=== PATIENT | female | born 1960 | race Caucasian/White ===

== ENCOUNTER 2016-08-15 11:46 | Emergency (ER) | payer SELFPAY ==
[~2016-08-15] VITALS: Ht 172.7 cm; Wt 59.3 kg
[2016-08-15 11:48] VITALS: BP 136/74; PULSE 85; RESP 16; TEMP 98; O2SAT 96
[2016-08-15] MEDS ORDERED: GABA300C5 PO (12:13)
--- NOTE | 2016-08-15 12:16 | PD ---
HPI Chief Complaint: Headache Time Seen by Provider: 12:07 Travel History International Travel<30 days: No Contact w/Intl Traveler<30days: No Traveled to known affect area: No History of Present Illness HPI This patient complains of headache. She said headache daily for a month. Located in the left forehead area where she had a shingles rash. The rash has resolved but has left her with some postherpetic neuralgia. No head injury or fever. PFSH Past Medical History Hx Anticoagulant Therapy: Yes (81 MG ASA) Cancer: No Cardiac Catheterization: Yes Cardiovascular Problems: Yes (HEART ATTACK 2013) Chemotherapy: No Cerebrovascular Accident: No Coronary Artery Disease: Yes Diabetes: No Diminished Hearing: No Endocrine: No Genitourinary: No Immune Disorder: No Musculoskeletal: No Neurologic: No Psychiatric: No Reproductive: No Respiratory: No Immunizations Current: Yes Myocardial Infarction: Yes Influenza Vaccination: No ?: Not Menopausal: Yes Past Surgical History Gynecologic Surgery: Yes (ovarian cyst removed) Hysterectomy: No Tonsillectomy: Yes Other Surgery: Yes Social History Alcohol Use: Yes (3 times/weekly) Tobacco Use: Yes (1/2 ppd ) Substance Use: Yes (occasionally smokes marijuana) Allergies-Medications (Allergen,Severity, Reaction): Coded Allergies: No Known Allergies (Verified , 08/15/16) Reported Meds & Prescriptions Reported Meds & Active Scripts Active Gabapentin 300 Mg Cap 300 Mg PO TID Review of Systems General / Constitutional: No: Fever HENT: Positive: Headaches Cardiovascular: No: Chest Pain or Discomfort Physical Exam Narrative NEUROLOGICAL: Awake and alert. Pupils are equal round and reactive. Motor and sensory grossly within normal limits. Five out of 5 muscle strength in all muscle groups. Normal speech. NECK: Symmetrical appearance, midline trachea. No mass or crepitus. Thyroid without enlargement, tenderness, or mass. SKIN: Inspection shows no rash or ulcers. Palpation shows no induration or nodules. Scalp: Her shingles rash has resolved Data Data Last Documented VS Vital Signs Date Time Temp Pulse Resp B/P Pulse Ox O2 Delivery O2 Flow Rate FiO2 08/15/16 11:48 98.0 85 16 136/74 96 MDM Medical Decision Making Medical Screen Exam Complete: Yes Emergency Medical Condition: Yes Medical Record Reviewed: Yes Differential Diagnosis Postherpetic neuralgia, migraine, tension headache Narrative Course I have reviewed the patient's electronic medical record. This patient's presentation is most consistent with a postherpetic neuralgia. She tried narcotics which did not help Going to start her on Neurontin Recommend primary care follow-up Diagnosis Primary Impression: Postherpetic neuralgia Additional Instructions: The patient was advised to follow up with their physician and return if they worsen. Med/Other Pt SpecificInfo: Prescription(s) given Scripts Gabapentin 300 Mg [id number] Mg PO TID #60 CAP Ref 0 Prov:Chase Perez MD 08/15/16 Disposition: 01 DISCHARGE HOME Condition: Stable Chase Perez MD Aug 15, 2016 12:16
== END 2016-08-15 12:24 | disposition home or self-care (01) ==
LOC: PHED 11:46
DX: B02.29 Other postherpetic nervous system involvement (principal); Z79.82 Long term (current) use of aspirin; I25.10 Atherosclerotic heart disease of native coronary artery without angina pectoris; I25.2 Old myocardial infarction; F17.210 Nicotine dependence, cigarettes, uncomplicated
CPT/HCPCS: 99283